=== PATIENT | female | born 1955 | race Caucasian/White ===

== ENCOUNTER 2023-10-02 11:10 | Emergency (ER) | payer OTHER ==
[~2023-10-02] VITALS: Ht 152.4 cm; Wt 67.6 kg
[2023-10-02 11:36] VITALS: BP 123/78; PULSE 78; RESP 20; TEMP 96.5; O2SAT 100
[2023-10-02] MEDS ORDERED: LIDOCAINE/EPI MPF 1%1:200000 30 ML VIAL INJ ONE (12:00)
[2023-10-02 13:48] VITALS: BP 127/67; PULSE 69; RESP 18; TEMP 97.7; O2SAT 96
== END 2023-10-02 13:48 | disposition home or self-care (01) ==
LOC: MED 11:10
DX: L02.411 Cutaneous abscess of right axilla (principal); Z79.899 Other long term (current) drug therapy
CPT/HCPCS: 10060; 99284; J2001